=== PATIENT | male | born 1985 | race Caucasian/White ===

== ENCOUNTER 2020-01-09 12:24 | Emergency (ER) | payer OTHER ==
[2020-01-09] MEDS: Acetaminophen/HYDROcodone 325-5 MG Tab PO ONE (14:38)
[2020-01-09] MEDS: Ketorolac 30 MG/ML SDV IM ONE (15:01)
[2020-01-09 15:06] LABS: ANION GAP 17.2 mEq/L (7-13); CHLORIDE,CL 97 mmol/L (98-107); SODIUM,NA 133 mmol/L (136-145)
[2020-01-09] MEDS: predniSONE 20 MG Tab PO ONE (15:37)
--- NOTE | 2020-01-09 15:51 | EDM.PDOC ---
Scribed by Alejandra Hartman 01/09/20 1506 for Sanchez Pino PA ED HPI GENERAL MEDICAL PROBLEM - General Chief Complaint: Lower Extremity Injury/Pain Stated Complaint: GOUT FLARE UP IN BOTH LEGS Time Seen by Provider: 01/09/20 14:13 Source of Information: Reports: Patient, RN, RN Notes Reviewed History Limitations: Reports: No Limitations - History of Present Illness INITIAL COMMENTS - FREE TEXT/NARRATIVE: This 34 yo male patient reports to the ED with bilateral foot pain. The patient reports he was recently diagnosed with gout. The patient has taken Colcrys, Indomethacin and 2 series of steroids with some intermittent symptom relief. The patient reports he also has a tendon in his right great toe that pulled away from the bone causing further increased pain and swelling. The patient reports he was doing pretty well until he was ran out of steroids. The patient has been in a short walking boot due to the tendon injury, but has continued to have increased symptoms. Onset: Gradual Duration: Week(s):, Constant Location: Reports: Lower Extremity, Left, Lower Extremity, Right Quality: Reports: Ache, Other Severity: Moderate Improves with: Reports: None Worsens with: Reports: None Context: Reports: Other Associated Symptoms: Reports: No Other Symptoms - Related Data Allergies Allergy/AdvReac Type Severity Reaction Status Date / Time codeine AdvReac "sensitive Verified 01/09/20 12:42 to it" hydrocodone AdvReac severe Verified 01/09/20 13:57 abd. pain and hallucinations Home Meds: Home Meds Diclofenac Sodium 1 appful PO Q6H PRN 01/09/20 [History] Febuxostat 40 mg PO DAILY 01/09/20 [History] Irbesartan 150 mg PO DAILY 01/09/20 [History] Past Medical History HEENT History: Reports: None Cardiovascular History: Reports: Hypertension Respiratory History: Reports: None Gastrointestinal History: Reports: None Genitourinary History: Reports: Other (See Below) Other Genitourinary History: Consult with Nephrology for evaluation for underlying cause of Gout Musculoskeletal History: Reports: Fracture, Gout Other Musculoskeletal History: Right foot fx Neurological History: Reports: None Psychiatric History: Reports: None Endocrine/Metabolic History: Reports: None Hematologic History: Reports: None Immunologic History: Reports: None Oncologic (Cancer) History: Reports: None Dermatologic History: Reports: None Social & Family History - Tobacco Use Smoking Status *Q: Never Smoker Second Hand Smoke Exposure: No - Caffeine Use Caffeine Use: Reports: Soda - Recreational Drug Use Recreational Drug Use: No Review of Systems - Review of Systems Review Of Systems: Comprehensive ROS is negative, except as noted in HPI. ED EXAM, GENERAL - Physical Exam Exam: See Below Exam Limited By: No Limitations General Appearance: Alert, WD/WN, Moderate Distress Eye Exam: Bilateral Eye: EOMI, Normal Inspection, PERRL Ears: Normal External Exam, Normal Canal, Hearing Grossly Normal, Normal TMs Nose: Normal Inspection, Normal Mucosa, No Blood Throat/Mouth: Normal Inspection, Normal Lips, Normal Teeth, Normal Gums, Normal Oropharynx, Normal Voice, No Airway Compromise Head: Atraumatic, Normocephalic Neck: Normal Inspection, Supple, Non-Tender, Full Range of Motion Respiratory/Chest: No Respiratory Distress, Lungs Clear, Normal Breath Sounds, No Accessory Muscle Use, Chest Non-Tender Cardiovascular: Normal Peripheral Pulses, Regular Rate, Rhythm, No Edema, No Gallop, No JVD, No Murmur, No Rub GI/Abdominal: Normal Bowel Sounds, Soft, Non-Tender, No Organomegaly, No Distention, No Abnormal Bruit, No Mass (Male) Exam: Deferred Rectal (Males) Exam: Deferred Extremities: Leg Pain (bilateral foot pain with swelling. ) Neurological: Alert, Oriented, CN II-XII Intact, Normal Cognition, Normal Gait, Normal Reflexes, No Motor/Sensory Deficits Psychiatric: Normal Affect, Normal Mood Skin Exam: Warm, Dry, Intact, Normal Color, No Rash Lymphatic: No Adenopathy Course - Vital Signs Last Recorded V/S: Last Vital Signs Temp 37.1 C 01/09/20 12:31 Pulse 133 H 01/09/20 12:31 Resp 20 01/09/20 12:31 BP 145/70 H 01/09/20 12:31 Pulse Ox 100 01/09/20 12:31 - Orders/Labs/Meds Orders: Active Orders 24 hr Category Date Time Status DME for Discharge [COMM] Urgent Oth 01/09/20 15:30 Ordered Labs: Laboratory Tests 01/09/20 01/09/20 01/09/20 Range/Units 14:35 14:35 14:35 WBC 10.6 H (5.0-10.0) 10^3/uL RBC 4.14 L (4.6-6.2) 10^6/uL Hgb 13.4 L (14.0-18.0) g/dL Hct 40.9 (40.0-54.0) % MCV 98.8 (80-100) fL MCH 32.4 (27.0-34.0) pg MCHC 32.8 L (33.0-35.0) g/dL Plt Count 223 (150-450) 10^3/uL Neut % (Auto) 80.8 H (42.2-75.2) % Lymph % (Auto) 8.5 L (20.5-50.1) % [place] % (Auto) 10.5 H (2-8) % Eos % (Auto) 0.0 L (1.0-3.0) % Baso % (Auto) 0.2 (0.0-1.0) % Sodium 133 L (136-145) mmol/L Potassium 4.2 (3.5-5.1) mmol/L Chloride 97 L (98-107) mmol/L Carbon Dioxide 23 (21-32) mmol/L Anion Gap 17.2 H (7-13) mEq/L BUN 10 (7-18) mg/dL Creatinine 1.16 (0.70-1.30) mg/dL Est Cr Clr Drug Dosing 110.16 mL/min Estimated GFR (MDRD) > 60 BUN/Creatinine Ratio 8.6 (No establ ref range) Glucose 111 H (74-99) mg/dL Uric Acid 3.7 (3.5-7.2) mg/dL Calcium 9.1 (8.5-10.1) mg/dL Total Bilirubin 0.9 (0.2-1.0) mg/dL AST 27 (15-37) U/L ALT 30 (16-63) U/L Alkaline Phosphatase 77 (46-116) U/L Total Protein 8.2 (6.4-8.2) g/dL Albumin 3.2 L (3.4-5.0) g/dL Globulin 5.0 Albumin/Globulin Ratio 0.64 Meds: Medications Discontinued Medications Generic Name Dose Route Start Last Admin Trade Name Freq PRN Reason Stop Dose Admin Hydrocodone Bitart/Acetaminophen 1 tab 01/09/20 14:16 01/09/20 14:38 [place] 325-5 Mg PO 01/09/20 14:17 Not Given ONETIME ONE Ketorolac Tromethamine 60 mg 01/09/20 14:55 01/09/20 15:01 Toradol IM 01/09/20 14:56 60 mg ONETIME ONE Administration Prednisone 40 mg 01/09/20 15:23 01/09/20 15:37 Prednisone PO 01/09/20 15:24 40 mg ONETIME ONE Administration Departure - Departure Time of Disposition: 15:47 Disposition: Home, Self-Care 01 Condition: Fair Clinical Impression: Gout Qualifiers: Gout site: foot Gout etiology: unspecified cause Chronicity: chronic Laterality : unspecified laterality Qualified Code(s): M1A.0790 - Idiopathic chronic gout, unspecified ankle and foot, without tophus (tophi) - Discharge Information *PRESCRIPTION DRUG MONITORING PROGRAM REVIEWED*: Not Applicable *COPY OF PRESCRIPTION DRUG MONITORING REPORT IN PATIENT ANA MARIA: Not Applicable Instructions: Gout, [id number] Forms: ED Department Discharge Care Plan Goals: The patient was advised of the examination and lab results during the visit. The patient was given an injection of Toradol and an oral dose of Prednisone while in the ED. The patient was discharged with a script for Prednisone (20 mg ) #8 to take 2 by mouth daily for 4 days. If the patient has any additional symptoms or concerns, the patient should either return to the emergency department or visit his primary care facility. Sepsis Event Note - Evaluation Sepsis Screening Result: No Definite Risk - Focused Exam Vital Signs: Vital Signs Temp Pulse Resp BP Pulse Ox 01/09/20 12:31 37.1 C 133 H 20 145/70 H 100 Date Exam was Performed: 01/09/20 Time Exam was Performed: 15:47 - My Orders Last 24 Hours: My Active Orders 01/09/20 15:30 DME for Discharge [COMM] Urgent - Assessment/Plan Last 24 Hours: My Active Orders 01/09/20 15:30 DME for Discharge [COMM] Urgent I have read and agree with the documentation that has been completed regarding this visit. By signing this record, I attest that the documentation was completed in my physical presence and is an accurate record of the encounter.
== END 2020-01-09 15:54 | disposition home or self-care (01) ==
LOC: DL.ED 12:24
DX: M1A.0790 Idiopathic chronic gout, unspecified ankle and foot, without tophus (tophi) (principal); Z79.899 Other long term (current) drug therapy; Z88.5 Allergy status to narcotic agent; Z88.6 Allergy status to analgesic agent
CPT/HCPCS: 36415; 80053; 84550; 85025; 96372; 99283; A9270; J1885

== ENCOUNTER 2020-07-02 16:17 | Inpatient (IN) | payer OTHER ==
[2020-07-02] MEDS ORDERED: Ondansetron 4 MG Tab.DIS PO PRN (16:53)
[2020-07-02] MEDS ORDERED: Morphine 2 MG/ML SYRINGE IVPUSH PRN (16:53)
[2020-07-02] MEDS ORDERED: Sodium Chloride 0.9% 10 ML Syringe FLUSH PRN (16:53)
[2020-07-02] MEDS: Sodium Chloride 0.9% 1,000 ML IV SCH ×2 (17:30→23:29)
--- NOTE | 2020-07-02 17:31 | PCM.HP ---
H&P History of Present Illness - General Date of Service: 07/02/20 Admit Problem/Dx: Admission Diagnosis/Problem Admission Diagnosis/Problem Acute kidney injury Source of Information: Patient - History of Present Illness Initial Comments - Free Text/Narative: 34-year-old gentleman with a history of hypertension, depression, gout.. The patient developed right great toe draining wound. Has been followed by podiatry and required surgery middle of the summer. Subsequently had sepsis with cellulitis in the area. He was treated with multiple medications including vancomycin but due to side effects most recently he was on daptomycin. Even with daptomycin the patient had nausea, loose bowel movements. Recently tested negative for C. difficile. The patient developed severe muscle ache, cramps. He was found to have severely elevated CPK levels. Plan was hospital admission to treat rhabdomyolysis and try to prevent acute renal failure. - Related Data Allergies/Adverse Reactions: Allergies Allergy/AdvReac Type Severity Reaction Status Date / Time morphine AdvReac Severe Headache Verified 07/02/20 17:24 fentanyl AdvReac Intermediate Nausea Verified 07/02/20 17:24 codeine AdvReac "sensitive Verified 07/02/20 17:24 to it" hydrocodone AdvReac severe Verified 07/02/20 17:24 abd. pain and hallucinations Home Medications: Home Meds Febuxostat 40 mg PO DAILY 01/09/20 [History] Irbesartan 150 mg PO DAILY 01/09/20 [History] DULoxetine HCl [Duloxetine HCl] 60 mg PO DAILY 06/16/20 [History] ondansetron HCL [Ondansetron HCl] 4 mg PO Q8H PRN 06/16/20 [History] rifAMPin [Rifampin] 300 mg PO BID 06/16/20 [History] Metoprolol Succinate 50 mg PO DAILY 06/18/20 [History] Omeprazole 20 mg PO DAILY 06/18/20 [History] oxyCODONE HCl/Acetaminophen [Oxycodone-Acetaminophen 5-325] 1 tab PO Q8HR PRN 06/18/20 [History] traMADol HCl [Tramadol HCl] 50 mg PO Q8H PRN 06/18/20 [History] Past Medical History HEENT History: Reports: None Cardiovascular History: Reports: Hypertension Respiratory History: Reports: None Gastrointestinal History: Reports: None Genitourinary History: Reports: Other (See Below) Other Genitourinary History: Consult with Nephrology for evaluation for underlying cause of Gout Musculoskeletal History: Reports: Fracture, Gout Other Musculoskeletal History: Right foot fx Neurological History: Reports: None Psychiatric History: Reports: None Endocrine/Metabolic History: Reports: None Hematologic History: Reports: None Immunologic History: Reports: None Oncologic (Cancer) History: Reports: None Dermatologic History: Reports: None Social & Family History - Caffeine Use Caffeine Use: Reports: Soda H&P Review of Systems - Review of Systems: Review Of Systems: See Below General: Reports: Malaise, Weakness. Denies: Fever, Chills Pulmonary: Denies: Shortness of Breath Cardiovascular: Denies: Chest Pain Gastrointestinal: Reports: Diarrhea (Soft, loose but not watery), Nausea Genitourinary: Reports: Other (Has had good urine output but noticed foamy urine.). Denies: Dysuria Psychiatric: Denies: Confusion Exam - Exam Exam: See Below - Exam Quality Assessment: No: Supplemental Oxygen General: Alert, Oriented Neck: Supple Lungs: Clear to Auscultation, Normal Respiratory Effort Cardiovascular: Regular Rate, Regular Rhythm GI/Abdominal Exam: Soft, Non-Tender, Other (Obese) Extremities: No Pedal Edema Skin: Warm, Other (Right foot toe without significant erythema and no significant open wound. Left foot plantar surface of great toe small area of chronic-appearing ulcer.) - Problem List (1) Rhabdomyolysis SNOMED Code(s): 008943901 ICD Code: M62.82 - RHABDOMYOLYSIS Status: Acute Current Visit: Yes (2) Hypertension SNOMED Code(s): 21234432 ICD Code: I10 - ESSENTIAL (PRIMARY) HYPERTENSION Status: Acute Current Visit: Yes (3) Depression with anxiety SNOMED Code(s): 304842024 ICD Code: F41.8 - OTHER SPECIFIED ANXIETY DISORDERS Status: Acute Current Visit: Yes (4) Gout SNOMED Code(s): 55026998 ICD Code: M10.9 - GOUT, UNSPECIFIED Status: Acute Current Visit: No Problem List Initiated/Reviewed/Updated: Yes Orders Last 24hrs: Active Orders 24 hr Category Date Time Status Patient Status [ADT] Routine ADT 07/02/20 16:50 Active Antiembolic Devices [RC] PER UNIT ROUTINE Care 07/02/20 16:55 Active Oxygen Therapy [RC] PRN Care 07/02/20 16:53 Active Peripheral IV Care [RC] . DIRECTED Care 07/02/20 16:55 Active Up ad Ping [RC] ASDIRECTED Care 07/02/20 16:53 Active VTE/DVT Education [RC] PER UNIT ROUTINE Care 07/02/20 16:53 Active Vital Signs [RC] Q4H Care 07/02/20 16:53 Active Regular Diet [DIET] Diet 07/02/20 Dinner Active BASIC METABOLIC PANEL,BMP [CHEM] AM Lab 07/03/20 05:11 Ordered CBC WITH AUTO DIFF [HEME] AM Lab 07/03/20 05:11 Ordered CREATINE KINASE,CK [CHEM] AM Lab 07/03/20 05:11 Ordered Acetaminophen [TylenoL] Med 07/02/20 16:53 Active 650 mg PO Q4H PRN DULoxetine HCl [Duloxetine HCl] Med 07/03/20 09:00 Pending 60 mg PO DAILY Febuxostat [Febuxostat] Med 07/03/20 09:00 Pending 40 mg PO DAILY Heparin Sodium Med 07/02/20 22:00 Active 5,000 units SUBCUT Q8HR Metoprolol Succinate [Toprol XL] Med 07/03/20 09:00 Pending 100 mg PO DAILY Omeprazole Med 07/03/20 09:00 Pending 20 mg PO DAILY Ondansetron [Zofran ODT] Med 07/02/20 16:53 Active 4 mg PO Q6H PRN Sodium Chloride 0.9% [Normal Saline] 1,000 ml Med 07/02/20 17:30 Ordered IV ASDIRECTED Sodium Chloride 0.9% [Saline Flush] Med 07/02/20 16:53 Active 10 ml FLUSH ASDIRECTED PRN Zolpidem [Ambien] Med 07/02/20 16:53 Active 5 mg PO BEDTIME PRN cloNIDine [Catapres] Med 07/02/20 17:22 Ordered 0.1 mg PO Q4H PRN oxyCODONE Med 07/02/20 16:53 Active 5 mg PO Q4H PRN Antiembolic Hose [OM.PC] Per Unit Routine Oth 07/02/20 16:54 Ordered Peripheral IV Insertion Adult [OM.PC] Routine Oth 07/02/20 16:53 Ordered Resuscitation Status Routine Resus Stat 07/02/20 16:53 Ordered Medication Orders Acetaminophen (Tylenol) 650 mg PO Q4H PRN PRN Reason: Pain (Mild 1-3)/fever Clonidine HCl (Catapres) 0.1 mg PO Q4H PRN PRN Reason: sbp>150, DBP>100 Heparin Sodium (Porcine) (Heparin Sodium) 5,000 units SUBCUT Q8HR [place] Sodium Chloride (Normal Saline) 1,000 mls @ 150 mls/hr IV ASDIRECTED [place]ON Metoprolol Succinate (Toprol Xl) 100 mg PO DAILY [facility]ON Non-Formulary Medication (Duloxetine Hcl [Duloxetine Hcl]) 60 mg PO DAILY [facility] Non-Formulary Medication (Febuxostat [Febuxostat]) 40 mg PO DAILY LEON Omeprazole (Omeprazole) 20 mg PO DAILY [facility] Ondansetron HCl (Zofran Odt) 4 mg PO Q6H PRN PRN Reason: nausea, able to take PO Oxycodone HCl (Oxycodone) 5 mg PO Q4H PRN PRN Reason: Pain (moderate 4-6) Sodium Chloride (Saline Flush) 10 ml FLUSH ASDIRECTED PRN PRN Reason: Keep Vein Open Zolpidem Tartrate (Ambien) 5 mg PO BEDTIME PRN PRN Reason: Sleep Assessment/Plan Comment:: 34-year-old with a history of right foot cellulitis, osteomyelitis most recently on antibiotic treatment with daptomycin. Noticed muscle cramps, muscle weakness, foamy urine. Acute rhabdomyolysis with elevated CPK, AST Likely secondary to daptomycin We'll stop daptomycin Give normal saline bolus Hydrate well Give sodium bicarbonate Follow electrolytes and renal function Right great toe cellulitis, osteomyelitis Appears good now We'll hold off on further antibiotics Hypertension We'll hold ARB to prevent acute renal failure Follow blood pressure Clonidine when necessary Gout Continue ULoric Depression, anxiety Continue Cymbalta DVT prophylaxis with subcutaneous heparin
[2020-07-02] MEDS: oxyCODONE 5 MG Tab PO PRN (21:53)
[2020-07-02] MEDS: Acetaminophen 325 MG Tab PO PRN (21:55)
[2020-07-02] MEDS: Heparin Sodium 5,000 Units/ML Vial SUBCUT SCH (21:56)
[2020-07-02] MEDS ORDERED: Calcium Carbonate 500 MG Tab.Chew PO PRN (22:33)
[2020-07-02] MEDS: Zolpidem 5 MG Tab PO PRN (23:43)
[2020-07-02] MEDS: cloNIDine 0.1 MG Tab PO PRN (23:43)
[2020-07-03] MEDS: oxyCODONE 5 MG Tab PO PRN ×2 (02:01→06:04)
[2020-07-03] MEDS: Acetaminophen 325 MG Tab PO PRN ×2 (02:01→06:04)
[2020-07-03] MEDS: Heparin Sodium 5,000 Units/ML Vial SUBCUT SCH ×3 (05:24→21:37)
[2020-07-03] MEDS ORDERED: Omeprazole 20 MG Cap.CR PO SCH (06:00)
[2020-07-03] MEDS: Sodium Chloride 0.9% 1,000 ML IV SCH ×3 (06:07→21:30)
[2020-07-03 07:13] LABS: ANION GAP 14.7 mEq/L (7-13); CHLORIDE,CL 104 mmol/L (98-107); SODIUM,NA 140 mmol/L (136-145)
[2020-07-03] MEDS: amLODIPine 5 MG Tab PO SCH (08:46)
[2020-07-03] MEDS: Metoprolol Succinate 50 MG Tab.ER PO SCH (08:46)
[2020-07-03] MEDS: DULoxetine 30 MG Cap PO SCH (08:46)
[2020-07-03] MEDS: FEBUXOSTAT 40 MG PO SCH (08:48)
[2020-07-03] MEDS: Sodium Bicarbonate 650 MG Tab PO SCH ×2 (10:52→20:46)
[2020-07-03] MEDS: Omeprazole 20 MG Cap.CR PO SCH (10:52)
--- NOTE | 2020-07-03 13:09 | PCM.PN ---
- General Info Date of Service: 07/03/20 Admission Dx/Problem (Free Text): Admission Diagnosis/Problem Admission Diagnosis/Problem Acute kidney injury Subjective Update: Continues to have muscle ache, all over, has been present for days. It appears better with oxycodone. No associated seizure. Does have hand weakness. Urinating well, light color urine, somewhat foamy. Good amounts. No associated swelling or shortness of breath. Lower extremity wounds are without redness. - Review of Systems General: Reports: Weakness. Denies: Fever Pulmonary: Denies: Shortness of Breath Cardiovascular: Denies: Chest Pain, Edema Gastrointestinal: Denies: Abdominal Pain Genitourinary: Denies: Dysuria, Hematuria Neurological: Denies: Confusion - Patient Data Vitals - Most Recent: Last Vital Signs Temp 98.8 F 07/03/20 08:02 Pulse 96 07/03/20 08:46 Resp 18 07/03/20 08:02 BP 146/80 H 07/03/20 08:46 Pulse Ox 100 07/03/20 08:02 Weight - Most Recent: 284 lb I&O - Last 24 Hours: Intake & Output 07/02/20 07/03/20 07/03/20 22:59 06:59 14:59 Intake Total 1360 2000 360 Output Total 1300 Balance 1360 700 360 Lab Results Last 24 Hours: Laboratory Results - last 24 hr 07/03/20 07/03/20 Range/Units 05:05 05:05 WBC 5.4 (5.0-10.0) 10^3/uL RBC 3.29 L (4.6-6.2) 10^6/uL Hgb 11.2 L D (14.0-18.0) g/dL Hct 34.4 L (40.0-54.0) % MCV 104.6 H D (80-100) fL MCH 34.0 (27.0-34.0) pg MCHC 32.6 L (33.0-35.0) g/dL Plt Count 186 (150-450) 10^3/uL Neut % (Auto) 55.3 (42.2-75.2) % Lymph % (Auto) 36.2 (20.5-50.1) % [place] % (Auto) 7.4 (2-8) % Eos % (Auto) 0.7 L (1.0-3.0) % Baso % (Auto) 0.4 (0.0-1.0) % Sodium 140 (136-145) mmol/L Potassium 3.7 (3.5-5.1) mmol/L Chloride 104 (98-107) mmol/L Carbon Dioxide 25 (21-32) mmol/L Anion Gap 14.7 H (7-13) mEq/L BUN 8 (7-18) mg/dL Creatinine 1.27 (0.70-1.30) mg/dL Est Cr Clr Drug Dosing 100.62 mL/min Estimated GFR (MDRD) > 60 Glucose 93 (74-99) mg/dL Calcium 7.6 L (8.5-10.1) mg/dL Creatine Kinase 45193 H (39-308) U/L Med Orders - Current: Current Medications Acetaminophen (Tylenol) 650 mg PO Q4H PRN PRN Reason: Pain (Mild 1-3)/fever Last Admin: 07/03/20 06:04 Dose: 650 mg Documented by: Amlodipine Besylate (Norvasc) 5 mg PO DAILY [facility] Last Admin: 07/03/20 08:46 Dose: 5 mg Documented by: Calcium Carbonate/Glycine (Tums) 1,000 mg PO Q4H PRN PRN Reason: Heartburn Clonidine HCl (Catapres) 0.1 mg PO Q4H PRN PRN Reason: sbp>150, DBP>100 Last Admin: 07/02/20 23:43 Dose: 0.1 mg Documented by: Duloxetine HCl (Cymbalta) 60 mg PO DAILY [facility] [place] Last Admin: 07/03/20 08:46 Dose: 60 mg Documented by: Heparin Sodium (Porcine) (Heparin Sodium) 5,000 units SUBCUT Q8HR [facility] Last Admin: 07/03/20 05:24 Dose: Not Given Documented by: Sodium Chloride (Normal Saline) 1,000 mls @ 150 mls/hr IV ASDIRECTED [facility] Last Admin: 07/03/20 06:07 Dose: 150 mls/hr Documented by: Metoprolol Succinate (Toprol Xl) 100 mg PO DAILY [facility] Last Admin: 07/03/20 08:46 Dose: 100 mg Documented by: Febuxostat 40 Mg * (*Own Med) 0 mg PO DAILY [facility] Last Admin: 07/03/20 08:48 Dose: 40 mg Documented by: Omeprazole (Omeprazole) 20 mg PO DAILY@0800 [facility] Last Admin: 07/03/20 10:52 Dose: 20 mg Documented by: Ondansetron HCl (Zofran Odt) 4 mg PO Q6H PRN PRN Reason: nausea, able to take PO Oxycodone HCl (Oxycodone) 5 mg PO Q4H PRN PRN Reason: Pain (moderate 4-6) Last Admin: 07/03/20 06:04 Dose: 5 mg Documented by: Sodium Bicarbonate (Sodium Bicarbonate) 650 mg PO BID [facility] Last Admin: 07/03/20 10:52 Dose: 650 mg Documented by: Sodium Chloride (Saline Flush) 10 ml FLUSH ASDIRECTED PRN PRN Reason: Keep Vein Open Zolpidem Tartrate (Ambien) 5 mg PO BEDTIME PRN PRN Reason: Sleep Last Admin: 07/02/20 23:43 Dose: 5 mg Documented by: Discontinued Medications Morphine Sulfate (Morphine) 2 mg IVPUSH Q2H PRN PRN Reason: Pain (severe 7-10) Omeprazole (Omeprazole) 20 mg PO ACBREAKFAST [facility] - Exam General: Alert, Oriented Neck: Supple Lungs: Clear to Auscultation, Normal Respiratory Effort Cardiovascular: Regular Rate, Regular Rhythm GI/Abdominal Exam: Normal Bowel Sounds, Soft, Non-Tender Extremities: No Pedal Edema Skin: Warm, Dry Wound/Incisions: Healing Well Neurological: No New Focal Deficit Psy/Mental Status: Alert, Normal Affect, Normal Mood Sepsis Event Note - Evaluation Sepsis Screening Result: No Definite Risk - Focused Exam Vital Signs: Vital Signs Temp Pulse Pulse Resp BP BP Pulse Ox 07/03/20 08:46 96 146/80 H 07/03/20 08:02 98.8 F 96 18 146/80 H 100 07/03/20 04:00 98.9 F 98 18 148/82 H 100 07/03/20 02:12 99.1 F 107 H 16 150/89 H 100 - Problem List & Annotations (1) Rhabdomyolysis SNOMED Code(s): 342555439 Code(s): M62.82 - RHABDOMYOLYSIS Status: Acute Current Visit: Yes (2) Hypertension SNOMED Code(s): 55497417 Code(s): I10 - ESSENTIAL (PRIMARY) HYPERTENSION Status: Acute Current Visit: Yes (3) Depression with anxiety SNOMED Code(s): 031481786 Code(s): F41.8 - OTHER SPECIFIED ANXIETY DISORDERS Status: Acute Current Visit: Yes (4) Gout SNOMED Code(s): 20152392 Code(s): M10.9 - GOUT, UNSPECIFIED Status: Acute Current Visit: No - Problem List Review Problem List Initiated/Reviewed/Updated: Yes - My Orders Last 24 Hours: My Active Orders 07/02/20 16:53 Up ad Ping [RC] ASDIRECTED VTE/DVT Education [RC] Acetaminophen [TylenoL] 650 mg PO Q4H PRN Ondansetron [Zofran ODT] 4 mg PO Q6H PRN Sodium Chloride 0.9% [Saline Flush] 10 ml FLUSH ASDIRECTED PRN Zolpidem [Ambien] 5 mg PO BEDTIME PRN oxyCODONE 5 mg PO Q4H PRN Peripheral IV Insertion Adult [OM.PC] Routine Resuscitation Status Routine 07/02/20 16:54 Antiembolic Hose [OM.PC] Per Unit Routine 07/02/20 16:55 Antiembolic Devices [RC] 07/02/20 Dinner Regular Diet [DIET] 07/02/20 17:22 cloNIDine [Catapres] 0.1 mg PO Q4H PRN 07/02/20 17:30 Sodium Chloride 0.9% [Normal Saline] 1,000 ml IV ASDIRECTED 07/02/20 17:31 Admission Status [Patient Status] [ADT] Routine 07/02/20 22:00 Heparin Sodium 5,000 units SUBCUT Q8HR 07/02/20 22:33 Calcium Carbonate [Tums] 1,000 mg PO Q4H PRN 07/03/20 08:00 Communication Order [RC] DAILY Omeprazole 20 mg PO DAILY@0800 07/03/20 09:00 DULoxetine [Cymbalta] 60 mg PO DAILY Febuxostat [Febuxostat] 0 mg PO DAILY Metoprolol Succinate [Toprol XL] 100 mg PO DAILY amLODIPine [Norvasc] 5 mg PO DAILY 07/03/20 10:00 Sodium Bicarbonate 650 mg PO BID 07/04/20 05:11 ASPARTATE AMNIOTRANSFERASE,AST [CHEM] AM CPK [CREATINE KINASE,CK] [CHEM] AM 07/04/20 05:15 BASIC METABOLIC PANEL,BMP [CHEM] AM - Plan Plan:: 34-year-old with a history of right foot cellulitis, osteomyelitis most recently on antibiotic treatment with daptomycin. Noticed muscle cramps, muscle weakness, foamy urine. Acute rhabdomyolysis with elevated CPK, AST Likely secondary to daptomycin last daptomycin 07/01 Hydrate well with NS Give sodium bicarbonate Follow electrolytes and renal function try baclofen for pain cont oxycodone prn Right great toe cellulitis, osteomyelitis Appears good now We'll hold off on further antibiotics Hypertension We'll hold ARB with concern for potential acute renal failure start Norvasc Follow blood pressure Clonidine when necessary Gout Continue ULoric Depression, anxiety Continue Cymbalta DVT prophylaxis with subcutaneous heparin
[2020-07-03] MEDS: Baclofen 10 MG Tab PO PRN (17:02)
[2020-07-03] MEDS: cloNIDine 0.1 MG Tab PO PRN (20:46)
[2020-07-04] MEDS: Zolpidem 5 MG Tab PO PRN ×2 (00:06→23:18)
[2020-07-04] MEDS: cloNIDine 0.1 MG Tab PO PRN ×2 (01:02→16:31)
[2020-07-04] MEDS: Baclofen 10 MG Tab PO PRN ×2 (01:09→23:18)
[2020-07-04] MEDS: Sodium Chloride 0.9% 1,000 ML IV SCH ×3 (04:20→17:52)
[2020-07-04 06:50] LABS: ANION GAP 12.7 mEq/L (7-13); CHLORIDE,CL 107 mmol/L (98-107); SODIUM,NA 142 mmol/L (136-145)
[2020-07-04] MEDS: DULoxetine 30 MG Cap PO SCH (08:47)
[2020-07-04] MEDS: Metoprolol Succinate 50 MG Tab.ER PO SCH (08:47)
[2020-07-04] MEDS: Omeprazole 20 MG Cap.CR PO SCH (08:48)
[2020-07-04] MEDS: Heparin Sodium 5,000 Units/ML Vial SUBCUT SCH ×3 (08:48→23:07)
[2020-07-04] MEDS: Sodium Bicarbonate 650 MG Tab PO SCH ×2 (08:48→23:07)
[2020-07-04] MEDS: amLODIPine 5 MG Tab PO SCH (08:48)
[2020-07-04] MEDS: FEBUXOSTAT 40 MG PO SCH (08:49)
[2020-07-04] MEDS ORDERED: amLODIPine 5 MG Tab PO ONE (10:51)
--- NOTE | 2020-07-04 10:54 | PCM.PN ---
- General Info Date of Service: 07/04/20 Admission Dx/Problem (Free Text): Admission Diagnosis/Problem Admission Diagnosis/Problem Rhabdomyolysis Subjective Update: Continues to have muscle ache, all over, but significantly improved, has been for days. It appears better with baclofen. No associated rash, fever. Has soft bowel movements Urinating well, light color urine, somewhat foamy. Good amounts. No associated swelling or shortness of breath. Lower extremity wounds are without redness, not draining. Functional Status: Reports: Pain Controlled, Tolerating Diet - Review of Systems General: Reports: Weakness. Denies: Fever Pulmonary: Denies: Shortness of Breath Cardiovascular: Denies: Chest Pain, Edema Gastrointestinal: Denies: Abdominal Pain Neurological: Denies: Confusion - Patient Data Vitals - Most Recent: Last Vital Signs Temp 98.2 F 07/04/20 08:05 Pulse 94 07/04/20 08:47 Resp 20 07/04/20 08:05 BP 148/86 H 07/04/20 08:48 Pulse Ox 100 07/04/20 08:05 Weight - Most Recent: 284 lb I&O - Last 24 Hours: Intake & Output 07/03/20 07/04/20 07/04/20 22:59 06:59 14:59 Intake Total 1495 1010 Output Total 450 2850 Balance 1045 -1840 Lab Results Last 24 Hours: Laboratory Results - last 24 hr 07/04/20 Range/Units 05:35 Sodium 142 (136-145) mmol/L Potassium 3.7 (3.5-5.1) mmol/L Chloride 107 (98-107) mmol/L Carbon Dioxide 26 (21-32) mmol/L Anion Gap 12.7 (7-13) mEq/L BUN 7 (7-18) mg/dL Creatinine 1.12 (0.70-1.30) mg/dL Est Cr Clr Drug Dosing 114.10 mL/min Estimated GFR (MDRD) > 60 Glucose 102 H (74-99) mg/dL Calcium 7.3 L (8.5-10.1) mg/dL AST 619 H (15-37) U/L Creatine Kinase 26078 H (39-308) U/L Med Orders - Current: Current Medications Acetaminophen (Tylenol) 650 mg PO Q4H PRN PRN Reason: Pain (Mild 1-3)/fever Last Admin: 07/03/20 06:04 Dose: 650 mg Documented by: Amlodipine Besylate (Norvasc) 5 mg PO DAILY [facility] Last Admin: 07/04/20 08:48 Dose: 5 mg Documented by: Baclofen (Lioresal) 10 mg PO Q8H PRN PRN Reason: Spasms Last Admin: 07/04/20 01:09 Dose: 10 mg Documented by: Calcium Carbonate/Glycine (Tums) 1,000 mg PO Q4H PRN PRN Reason: Heartburn Clonidine HCl (Catapres) 0.1 mg PO Q4H PRN PRN Reason: sbp>150, DBP>100 Last Admin: 07/04/20 01:02 Dose: 0.1 mg Documented by: Duloxetine HCl (Cymbalta) 60 mg PO DAILY [facility] Last Admin: 07/04/20 08:47 Dose: 60 mg Documented by: Heparin Sodium (Porcine) (Heparin Sodium) 5,000 units SUBCUT Q8HR [facility] Last Admin: 07/04/20 08:48 Dose: Not Given Documented by: Sodium Chloride (Normal Saline) 1,000 mls @ 150 mls/hr IV ASDIRECTED [facility] Last Admin: 07/04/20 04:20 Dose: 150 mls/hr Documented by: Metoprolol Succinate (Toprol Xl) 100 mg PO DAILY [facility] Last Admin: 07/04/20 08:47 Dose: 100 mg Documented by: Febuxostat 40 Mg * (*Own Med) 0 mg PO DAILY [facility] Last Admin: 07/04/20 08:49 Dose: 40 mg Documented by: Omeprazole (Omeprazole) 20 mg PO DAILY@0800 [facility] Last Admin: 07/04/20 08:48 Dose: 20 mg Documented by: Ondansetron HCl (Zofran Odt) 4 mg PO Q6H PRN PRN Reason: nausea, able to take PO Oxycodone HCl (Oxycodone) 5 mg PO Q4H PRN PRN Reason: Pain (moderate 4-6) Last Admin: 07/03/20 06:04 Dose: 5 mg Documented by: Sodium Bicarbonate (Sodium Bicarbonate) 650 mg PO BID [facility] Last Admin: 07/04/20 08:48 Dose: 650 mg Documented by: Sodium Chloride (Saline Flush) 10 ml FLUSH ASDIRECTED PRN PRN Reason: Keep Vein Open Zolpidem Tartrate (Ambien) 5 mg PO BEDTIME PRN PRN Reason: Sleep Last Admin: 07/04/20 00:06 Dose: 5 mg Documented by: Discontinued Medications Morphine Sulfate (Morphine) 2 mg IVPUSH Q2H PRN PRN Reason: Pain (severe 7-10) Omeprazole (Omeprazole) 20 mg PO ACBREAKFAST LEON - Exam General: Alert, Oriented Neck: Supple Lungs: Clear to Auscultation Cardiovascular: Regular Rate, Regular Rhythm GI/Abdominal Exam: Normal Bowel Sounds, Soft, Non-Tender Extremities: No Pedal Edema Skin: Warm, Dry Wound/Incisions: Healing Well Psy/Mental Status: Alert, Normal Affect, Depressed Sepsis Event Note - Evaluation Sepsis Screening Result: No Definite Risk - Focused Exam Vital Signs: Vital Signs Temp Pulse Pulse Resp BP BP Pulse Ox 07/04/20 08:48 148/86 H 07/04/20 08:47 94 148/86 H 07/04/20 08:05 98.2 F 94 20 148/86 H 100 07/04/20 05:00 18 131/81 07/04/20 02:00 137/72 07/04/20 01:02 155/92 H 07/04/20 01:00 18 155/92 H 07/04/20 00:00 98 F 95 18 156/106 H - Problem List & Annotations (1) Rhabdomyolysis SNOMED Code(s): 157179130 Code(s): M62.82 - RHABDOMYOLYSIS Status: Acute Current Visit: Yes (2) Hypertension SNOMED Code(s): 85413215 Code(s): I10 - ESSENTIAL (PRIMARY) HYPERTENSION Status: Acute Current Visit: Yes (3) Depression with anxiety SNOMED Code(s): 900289494 Code(s): F41.8 - OTHER SPECIFIED ANXIETY DISORDERS Status: Acute Current Visit: Yes (4) Gout SNOMED Code(s): 84541411 Code(s): M10.9 - GOUT, UNSPECIFIED Status: Acute Current Visit: No - Problem List Review Problem List Initiated/Reviewed/Updated: Yes - My Orders Last 24 Hours: My Active Orders 07/03/20 10:00 Sodium Bicarbonate 650 mg PO BID 07/03/20 16:29 Baclofen [Lioresal] 10 mg PO Q8H PRN 07/04/20 10:51 amLODIPine [Norvasc] 5 mg PO ONETIME ONE 07/05/20 05:11 ASPARTATE AMNIOTRANSFERASE,AST [CHEM] AM CPK [CREATINE KINASE,CK] [CHEM] AM CRP [C-REACTIVE PROTEIN] [CHEM] AM MAGNESIUM [CHEM] AM PHOSPHORUS [CHEM] AM SEDIMENTATION RATE MANUAL [HEME] AM 07/05/20 05:15 BASIC METABOLIC PANEL,BMP [CHEM] AM CBC WITH AUTO DIFF [HEME] AM 07/05/20 09:00 amLODIPine [Norvasc] 10 mg PO DAILY - Plan Plan:: 34-year-old with a history of right foot cellulitis, osteomyelitis most recently on antibiotic treatment with daptomycin. Noticed muscle cramps, muscle weakness, foamy urine. Acute rhabdomyolysis with elevated CPK, AST Likely secondary to daptomycin last daptomycin 07/01 Appears improving Hydrate well with NS Continue oral sodium bicarbonate Follow electrolytes and renal function Continue baclofen for pain cont oxycodone prn Right great toe cellulitis, osteomyelitis Appears good now We'll hold off on further antibiotics Hypertension Uncontrolled We'll hold ARB with concern for potential acute renal failure Increase Norvasc Follow blood pressure Clonidine when necessary Gout Continue ULoric Depression, anxiety Continue Cymbalta DVT prophylaxis with subcutaneous heparin
[2020-07-05] MEDS: Sodium Chloride 0.9% 1,000 ML IV SCH ×2 (00:36→07:10)
[2020-07-05] MEDS: Heparin Sodium 5,000 Units/ML Vial SUBCUT SCH (06:21)
[2020-07-05 06:53] LABS: ANION GAP 15.5 mEq/L (7-13); CHLORIDE,CL 107 mmol/L (98-107); SODIUM,NA 143 mmol/L (136-145)
[2020-07-05] MEDS: DULoxetine 30 MG Cap PO SCH (08:19)
[2020-07-05] MEDS: Omeprazole 20 MG Cap.CR PO SCH (08:19)
[2020-07-05] MEDS: Sodium Bicarbonate 650 MG Tab PO SCH (08:19)
[2020-07-05] MEDS: Metoprolol Succinate 50 MG Tab.ER PO SCH (08:20)
[2020-07-05] MEDS: FEBUXOSTAT 40 MG PO SCH (08:21)
[2020-07-05] MEDS ORDERED: amLODIPine 5 MG Tab PO SCH (09:00)
--- NOTE | 2020-07-05 10:24 | PCM.DCSUM1 ---
Discharge Summary - Hospital Course Free Text/Narrative:: 34-year-old with a history of right foot cellulitis, osteomyelitis most recently on antibiotic treatment with daptomycin. Noticed muscle cramps, muscle weakness, foamy urine. Acute rhabdomyolysis with elevated CPK, AST Likely secondary to daptomycin last daptomycin 07/01 Appears improving Continue baclofen for pain cont oxycodone prn Right great toe cellulitis, osteomyelitis Appears good now We'll hold off on further antibiotics Hypertension Uncontrolled We'll hold ARB with concern for potential acute renal failure Increase Norvasc Follow blood pressure Clonidine when necessary Gout Continue ULoric Depression, anxiety Continue Cymbalta Patient wants to be discharged. Dr Weathers arranged for outpatient IV fluid boluses. Will have daily CPK level - Discharge Data Discharge Date: 07/05/20 Discharge Disposition: Home, Self-Care 01 Condition: Good - Referral to Home Health Primary Care Physician: Vale Palacio NP - Patient Instructions Activity: As Tolerated Driving: May Drive Today Showering/Bathing: May Shower Notify Provider of: Fever, Increased Pain, Swelling and Redness, Nausea and/or Vomiting - Discharge Plan *PRESCRIPTION DRUG MONITORING PROGRAM REVIEWED*: No Home Medications: Home Meds Febuxostat 40 mg PO DAILY 01/09/20 [History] Irbesartan 150 mg PO DAILY 01/09/20 [History] DULoxetine HCl [Duloxetine HCl] 60 mg PO DAILY 06/16/20 [History] Metoprolol Succinate 100 mg PO DAILY 06/18/20 [History] Omeprazole 20 mg PO DAILY 06/18/20 [History] oxyCODONE HCl/Acetaminophen [Oxycodone-Acetaminophen 5-325] 1 tab PO Q8HR PRN 06/18/20 [History] amLODIPine [Norvasc] 10 mg PO DAILY tablet 07/05/20 [Rx] Patient Handouts: Rhabdomyolysis, PICC Home Care Guide Referrals: Vale Palacio NP [Primary Care Provider] - - Discharge Summary/Plan Comment DC Time >30 min.: No - General Info Date of Service: 07/05/20 - Review of Systems General: Reports: Malaise HEENT: Reports: No Symptoms Pulmonary: Reports: No Symptoms Cardiovascular: Reports: No Symptoms Gastrointestinal: Reports: No Symptoms - Patient Data Vitals - Most Recent: Last Vital Signs Temp 37.0 C 07/05/20 08:00 Pulse 93 07/05/20 08:20 Resp 18 07/05/20 08:00 BP 157/102 H 07/05/20 08:20 Pulse Ox 100 07/05/20 08:00 Weight - Most Recent: 128.82 kg I&O - Last 24 hours: Intake & Output 07/04/20 07/05/20 07/05/20 22:59 06:59 14:59 Intake Total 1360 1897 Output Total 1200 1200 1000 Balance 160 697 -1000 Lab Results - Last 24 hrs: Laboratory Results - last 24 hr 07/05/20 07/05/20 07/05/20 Range/Units 05:55 05:55 05:55 WBC 6.0 (5.0-10.0) 10^3/uL RBC 3.27 L (4.6-6.2) 10^6/uL Hgb 11.2 L (14.0-18.0) g/dL Hct 33.9 L (40.0-54.0) % MCV 103.7 H (80-100) fL MCH 34.3 H (27.0-34.0) pg MCHC 33.0 (33.0-35.0) g/dL Plt Count 166 (150-450) 10^3/uL Neut % (Auto) 66.3 (42.2-75.2) % Lymph % (Auto) 25.2 (20.5-50.1) % [place] % (Auto) 6.5 (2-8) % Eos % (Auto) 1.7 (1.0-3.0) % Baso % (Auto) 0.3 (0.0-1.0) % ESR 20 H (0-15) mm/hr Sodium 143 (136-145) mmol/L Potassium 3.5 (3.5-5.1) mmol/L Chloride 107 (98-107) mmol/L Carbon Dioxide 24 (21-32) mmol/L Anion Gap 15.5 H (7-13) mEq/L BUN 6 L (7-18) mg/dL Creatinine 0.98 (0.70-1.30) mg/dL Est Cr Clr Drug Dosing 130.40 mL/min Estimated GFR (MDRD) > 60 Glucose 96 (74-99) mg/dL Calcium 7.1 L (8.5-10.1) mg/dL Phosphorus 3.1 (2.6-4.7) mg/dL Magnesium 1.5 L (1.8-2.4) mg/dL AST 342 H (15-37) U/L Creatine Kinase 49687 H (39-308) U/L C-Reactive Protein < 0.2 (0.0-0.9) mg/dL Med Orders - Current: Current Medications Acetaminophen (Tylenol) 650 mg PO Q4H PRN PRN Reason: Pain (Mild 1-3)/fever Last Admin: 07/03/20 06:04 Dose: 650 mg Documented by: Amlodipine Besylate (Norvasc) 10 mg PO DAILY [facility] Last Admin: 07/05/20 08:19 Dose: 10 mg Documented by: Baclofen (Lioresal) 10 mg PO Q8H PRN PRN Reason: Spasms Last Admin: 07/04/20 23:18 Dose: 10 mg Documented by: Calcium Carbonate/Glycine (Tums) 1,000 mg PO Q4H PRN PRN Reason: Heartburn Clonidine HCl (Catapres) 0.1 mg PO Q4H PRN PRN Reason: sbp>150, DBP>100 Last Admin: 07/04/20 16:31 Dose: 0.1 mg Documented by: Duloxetine HCl (Cymbalta) 60 mg PO DAILY [facility] Last Admin: 07/05/20 08:19 Dose: 60 mg Documented by: Heparin Sodium (Porcine) (Heparin Sodium) 5,000 units SUBCUT Q8HR [facility] Last Admin: 07/05/20 06:21 Dose: Not Given Documented by: Sodium Chloride (Normal Saline) 1,000 mls @ 150 mls/hr IV ASDIRECTED [facility] Last Admin: 07/05/20 07:10 Dose: 150 mls/hr Documented by: Metoprolol Succinate (Toprol Xl) 100 mg PO DAILY [facility] Last Admin: 07/05/20 08:20 Dose: 100 mg Documented by: Febuxostat 40 Mg * (*Own Med) 0 mg PO DAILY [facility] Last Admin: 07/05/20 08:21 Dose: 40 mg Documented by: Omeprazole (Omeprazole) 20 mg PO DAILY@0800 [facility] Last Admin: 07/05/20 08:19 Dose: 20 mg Documented by: Ondansetron HCl (Zofran Odt) 4 mg PO Q6H PRN PRN Reason: nausea, able to take PO Oxycodone HCl (Oxycodone) 5 mg PO Q4H PRN PRN Reason: Pain (moderate 4-6) Last Admin: 07/03/20 06:04 Dose: 5 mg Documented by: Sodium Bicarbonate (Sodium Bicarbonate) 650 mg PO BID [facility] Last Admin: 07/05/20 08:19 Dose: 650 mg Documented by: Sodium Chloride (Saline Flush) 10 ml FLUSH ASDIRECTED PRN PRN Reason: Keep Vein Open Zolpidem Tartrate (Ambien) 5 mg PO BEDTIME PRN PRN Reason: Sleep Last Admin: 07/04/20 23:18 Dose: 5 mg Documented by: Discontinued Medications Amlodipine Besylate (Norvasc) 5 mg PO DAILY [facility] Last Admin: 07/04/20 08:48 Dose: 5 mg Documented by: Amlodipine Besylate (Norvasc) 5 mg PO ONETIME ONE Stop: 07/04/20 10:52 Last Admin: 07/04/20 13:06 Dose: 5 mg Documented by: Morphine Sulfate (Morphine) 2 mg IVPUSH Q2H PRN PRN Reason: Pain (severe 7-10) Omeprazole (Omeprazole) 20 mg PO ACBREAKFAST LEON - Exam General: Reports: Alert, Oriented HEENT: Reports: Pupils Equal, Pupils Reactive, EOMI, Mucous Membr. Moist/[place] Lungs: Reports: Clear to Auscultation, Normal Respiratory Effort Cardiovascular: Reports: Regular Rate, Regular Rhythm GI/Abdominal Exam: Normal Bowel Sounds, Soft, Non-Tender, No Organomegaly, No Distention, No Abnormal Bruit, No Mass, Pelvis Stable
== END 2020-07-05 12:33 | disposition home or self-care (01) | DRG 558 ==
LOC: OBSVTOIN 16:59 → UNDOADMOB 16:59 → DL.MS 16:59 → INTOOBSV 16:59 → OBSVTOIN 17:31 → DL.MS 17:31
PROVIDERS: ADMIT Internal Medicine; ATTEND Hospitalist
DX: M62.82 Rhabdomyolysis (principal); M86.8X7 Other osteomyelitis, ankle and foot; T36.8X5A Adverse effect of other systemic antibiotics, initial encounter; L03.031 Cellulitis of right toe; I10 Essential (primary) hypertension; M10.9 Gout, unspecified; F41.9 Anxiety disorder, unspecified; F32.9 Major depressive disorder, single episode, unspecified; Z79.899 Other long term (current) drug therapy; Z88.5 Allergy status to narcotic agent; Z88.8 Allergy status to other drugs, medicaments and biological substances
CPT/HCPCS: 36415; 80048; 82550; 83735; 84100; 84450; 85025; 85651; 86140; A9270-GY; J7030

== ENCOUNTER 2021-12-30 00:16 | Emergency (ER) | payer OTHER ==
[2021-12-30] MEDS ORDERED: prednisoLONE Soln 15 MG/5 ML UD Cup PO ONE (00:17)
[2021-12-30] MEDS ORDERED: LORazepam 1 MG Tab PO ONE (00:17)
[2021-12-30] MEDS ORDERED: LORazepam 2 MG/ML SDV IVPUSH ONE (00:33)
[2021-12-30] MEDS ORDERED: methylPREDNISolone Sodium Succinate 125 MG/2 ML SDV IVPUSH ONE (00:41)
[2021-12-30] MEDS ORDERED: Iopamidol 612 MG/ML 100 ML Bottle IVPUSH ONE (00:42)
[2021-12-30] MEDS ORDERED: cefTRIAXone 1 GM in Sodium Chloride 0.9% 50 ML IV ONE (00:46)
[2021-12-30] MEDS ORDERED: Sodium Chloride 0.9% 1,000 ML IV ONE (00:46)
[2021-12-30 01:05] LABS: ANION GAP 20.2 mEq/L (7-13); CHLORIDE,CL 97 mmol/L (98-107); SODIUM,NA 137 mmol/L (136-145)
[2021-12-30 01:27] LABS: CORONAVIRUS COVID-19 NAA NEGATIVE (NEGATIVE)
[2021-12-30] MEDS ORDERED: Potassium Chloride 10 MEQ in Premix Bag 1 BAG IV ONE (01:38)
[2021-12-30] MEDS ORDERED: LORazepam 1 MG Tab ONE (02:16)
[2021-12-30] MEDS ORDERED: prednisoLONE Soln 15 MG/5 ML UD Cup ONE (02:16)
[2021-12-30] MEDS ORDERED: Amoxicillin/Clavulanate K 400-57 MG/5 ML Susp 100 ML Bottle ONE (02:17)
== END 2021-12-30 03:08 | disposition home or self-care (01) ==
LOC: DL.ED 00:16
DX: J02.9 Acute pharyngitis, unspecified (principal); Z88.5 Allergy status to narcotic agent; Z88.8 Allergy status to other drugs, medicaments and biological substances; Z79.899 Other long term (current) drug therapy; Z87.891 Personal history of nicotine dependence; Z20.822 Contact with and (suspected) exposure to COVID-19
CPT/HCPCS: 0240U; 36415; 70491; 80053; 83605; 85025; 86308; 87081; 87430; 96365; 96367; 96375; 99284; A9270; J0696; J2060; J2930; J3480; J7030; Q9967

== ENCOUNTER 2024-10-23 19:16 | Emergency (ER) | payer OTHER ==
[2024-10-23 19:38] LABS: BASOPHILS PERCENT AUTO 0.5 % (0.0-1.0); EOSINOPHILS PERCENT AUTO 0.9 % (1.0-3.0); HEMATOCRIT 31.7 % (40.0-54.0); HEMOGLOBIN 9.5 g/dL (14.0-18.0); LYMPHOCYTES PERCENT AUTO 33.9 % (20.5-50.1); MEAN CORPUSCULAR HEMOGLOBIN 23.3 pg (27.0-34.0); MEAN CORPUSCULAR VOLUME 77.9 fL (80-100); MONOCYTES PERCENT AUTO 4.8 % (2-8); NEUTROPHILS PERCENT AUTO 59.9 % (42.2-75.2); PLATELET COUNT,PLT 296 10^3/uL (150-450); RED BLOOD CELL COUNT 4.07 10^6/uL (4.6-6.2); WHITE BLOOD CELL COUNT,WBC 6.5 10^3/uL (5.0-10.0)
[2024-10-23] MEDS: MVI, Adult with Vitamin K 10 ML, Folic Acid 1 MG, Thiamine 100 MG in Lactated Ringers 1... IV ONE (19:50)
[2024-10-23 19:59] LABS: A/G RATIO 0.8; ALANINE AMINOTRANSFERASE,ALT 32 U/L (16-63); ALBUMIN 3.5 g/dL (3.4-5.0); ALKALINE PHOSPHATASE 133 U/L (46-116); ANION GAP 14.9 mEq/L (7-13); ASPARTATE AMNIOTRANSFERASE,AST 24 U/L (15-37); BILIRUBIN TOTAL 0.2 mg/dL (0.2-1.0); BLOOD UREA NITROGEN,BUN 11 mg/dL (7-18); BUN/CREATININE RATIO 8.7 (No establ ref range); CALCIUM 8.2 mg/dL (8.5-10.1); CARBON DIOXIDE,CO2 28 mmol/L (21-32); CHLORIDE,CL 101 mmol/L (98-107); CREATININE 1.26 mg/dL (0.70-1.30); GLUCOSE RANDOM 159 mg/dL (70-99); POTASSIUM,K 3.9 mmol/L (3.5-5.1); PROTEIN TOTAL,TP 7.8 g/dL (6.4-8.2); SODIUM,NA 140 mmol/L (136-145)
[2024-10-23 20:01] LABS: PROTHROMBIN TIME 10.3 SEC (9.0-12.0)
[2024-10-23 20:03] LABS: ESTIMATED GFR 74 mL/min (>=60)
[2024-10-23 20:04] LABS: ETHANOL BLOOD MEDICAL 416 mg/dL (0)
[2024-10-23] MEDS: Pantoprazole 40 MG Vial IVPUSH ONE (20:47)
[2024-10-23] MEDS: Sodium Chloride 0.9% 1,000 ML IV ONE (20:47)
[2024-10-23 21:09] LABS: APPEARANCE,URINE CLEAR (CLEAR); BILIRUBIN,URINE NEGATIVE (NEGATIVE); COLOR,URINE YELLOW (YELLOW); GLUCOSE,URINE NEGATIVE (NEGATIVE); KETONES,URINE NEGATIVE (NEGATIVE); LEUKOCYTE ESTERASE,URINE NEGATIVE (NEGATIVE); NITRITE,URINE NEGATIVE (NEGATIVE); OCCULT BLOOD,URINE NEGATIVE (NEGATIVE); PH,URINE 6.5 (5.0-9.0); PROTEIN,URINE NEGATIVE (NEGATIVE); UROBILINOGEN,URINE 0.2 mg/dL (0.2-1.0)
[2024-10-23 21:15] LABS: AMPHETAMINES,URINE NEGATIVE (NEGATIVE); BARBITURATES,URINE NEGATIVE (NEGATIVE); BENZODIAZEPINE,URINE NEGATIVE (NEGATIVE); MDMA (ECSTASY), URINE NEGATIVE (NEGATIVE); METHADONE,URINE NEGATIVE (NEGATIVE); METHAMPHETAMINES,URINE NEGATIVE (NEGATIVE); OPIATES,URINE NEGATIVE (NEGATIVE); OXYCODONE,URINE NEGATIVE (NEGATIVE); PHENCYCLIDINE,URINE NEGATIVE (NEGATIVE); TCA,URINE NEGATIVE (NEGATIVE)
== END 2024-10-24 01:05 | disposition home or self-care (01) ==
LOC: DL.ED 19:16
DX: F10.129 Alcohol abuse with intoxication, unspecified (principal); F12.10 Cannabis abuse, uncomplicated; D63.8 Anemia in other chronic diseases classified elsewhere; I10 Essential (primary) hypertension; Z79.899 Other long term (current) drug therapy; Z88.5 Allergy status to narcotic agent; Z88.6 Allergy status to analgesic agent
CPT/HCPCS: 36415; 70450; 80053; 80305; 80307; 81003; 82140; 83735; 84484; 85025; 85610; 93005; 96361; 96365; 96375; 99284; J2470; J3411; J7030; J7120; J3490

== ENCOUNTER 2024-11-18 05:49 | Day surgery (SDC) | payer OTHER ==
[~2024-11-18 05:49] MED LIST: Sodium Chloride 0.9% 10 ML Syringe FLUSH SCH
[2024-11-18] MEDS: Dextrose 5%-0.45% NaCl 1,000 ML IV SCH (06:08)
[2024-11-18] MEDS ORDERED: fentaNYL 100 MCG/2 ML SDV IV ONE (06:15)
[2024-11-18] MEDS ORDERED: fentaNYL 100 MCG/2 ML SDV ONE (06:15)
[2024-11-18] MEDS ORDERED: Midazolam 1 MG/ML 2 ML SDV IV ONE (06:15)
[2024-11-18] MEDS ORDERED: Midazolam 1 MG/ML 2 ML SDV ONE (06:15)
[2024-11-18] MEDS: fentaNYL 100 MCG/2 ML SDV IV ONE ×2 (06:32→06:33)
[2024-11-18] MEDS: Midazolam 1 MG/ML 2 ML SDV IV ONE ×2 (06:34)
== END 2024-11-18 08:17 | disposition home or self-care (01) ==
LOC: DL.ENDO 05:49
PROVIDERS: ATTEND Internal Medicine Gastroenterology
DX: K29.50 Unspecified chronic gastritis without bleeding (principal); D64.9 Anemia, unspecified; F10.90 Alcohol use, unspecified, uncomplicated; K76.9 Liver disease, unspecified; E66.09 Other obesity due to excess calories; F41.1 Generalized anxiety disorder; I12.9 Hypertensive chronic kidney disease with stage 1 through stage 4 chronic kidney disease, or unspecified chronic kidney disease; N18.9 Chronic kidney disease, unspecified; Z88.8 Allergy status to other drugs, medicaments and biological substances; Z88.5 Allergy status to narcotic agent; Z68.41 Body mass index [BMI] 40.0-44.9, adult
CPT/HCPCS: J2250; J3010; J7799

== ENCOUNTER 2024-11-19 05:41 | Day surgery (SDC) | payer OTHER ==
[2024-11-19] MEDS ORDERED: Midazolam 1 MG/ML 2 ML SDV IV ONE (06:09)
[2024-11-19] MEDS ORDERED: Midazolam 1 MG/ML 2 ML SDV ONE (06:09)
[2024-11-19] MEDS ORDERED: fentaNYL 100 MCG/2 ML SDV ONE (06:09)
[2024-11-19] MEDS ORDERED: fentaNYL 100 MCG/2 ML SDV IV ONE (06:09)
[2024-11-19] MEDS: Dextrose 5%-0.45% NaCl 1,000 ML IV SCH (06:10)
[2024-11-19] MEDS: fentaNYL 100 MCG/2 ML SDV IV ONE ×5 (06:57→07:15)
[2024-11-19] MEDS: Midazolam 1 MG/ML 2 ML SDV IV ONE ×6 (06:58→07:10)
== END 2024-11-19 08:33 | disposition home or self-care (01) ==
LOC: DL.ENDO 05:41
PROVIDERS: ATTEND Internal Medicine Gastroenterology
DX: D12.8 Benign neoplasm of rectum (principal); D64.9 Anemia, unspecified; K76.9 Liver disease, unspecified; I10 Essential (primary) hypertension; E66.09 Other obesity due to excess calories; F41.1 Generalized anxiety disorder
CPT/HCPCS: 45380; J2250; J3010; J7799

== ENCOUNTER 2025-02-26 19:34 | Inpatient (IN) | payer OTHER ==
[2025-02-26] MEDS: Ondansetron 4 MG/2 ML SDV IVPUSH ONE (20:11)
[2025-02-26] MEDS: Sodium Chloride 0.9% 1,000 ML IV ONE ×2 (20:12→23:44)
[2025-02-26] MEDS: Iopamidol 612 MG/ML 100 ML Bottle IVPUSH ONE ×2 (20:19→21:52)
[2025-02-26] MEDS: LORazepam 2 MG/ML SDV IVPUSH ONE (20:45)
[2025-02-26 20:46] LABS: BASOPHILS PERCENT AUTO 0.2 % (0.0-1.0); HEMATOCRIT 32.3 % (40.0-54.0); LYMPHOCYTES PERCENT AUTO 5.9 % (20.5-50.1); MEAN CORPUSCULAR HEMOGLOBIN 24.6 pg (27.0-34.0); MEAN CORPUSCULAR VOLUME 79.4 fL (80-100); NEUTROPHILS PERCENT AUTO 85.9 % (42.2-75.2); PLATELET COUNT,PLT 171 10^3/uL (150-450); RED BLOOD CELL COUNT 4.07 10^6/uL (4.6-6.2); WHITE BLOOD CELL COUNT,WBC 5.3 10^3/uL (5.0-10.0)
[2025-02-26 21:07] LABS: A/G RATIO 0.7; ALANINE AMINOTRANSFERASE,ALT 31 U/L (16-63); ALBUMIN 3.6 g/dL (3.4-5.0); ALKALINE PHOSPHATASE 129 U/L (46-116); ASPARTATE AMNIOTRANSFERASE,AST 31 U/L (15-37); BILIRUBIN TOTAL 0.6 mg/dL (0.2-1.0); BLOOD UREA NITROGEN,BUN 8 mg/dL (7-18); BUN/CREATININE RATIO 5.9 (No establ ref range); CALCIUM 9.1 mg/dL (8.5-10.1); CARBON DIOXIDE,CO2 25 mmol/L (21-32); CHLORIDE,CL 95 mmol/L (98-107); CREATININE 1.36 mg/dL (0.70-1.30); GLUCOSE RANDOM 132 mg/dL (70-99); LIPASE 13 U/L (16-77); MAGNESIUM 1.3 mg/dL (1.8-2.4); PROTEIN TOTAL,TP 8.5 g/dL (6.4-8.2); SODIUM,NA 132 mmol/L (136-145)
[2025-02-26 21:11] LABS: ANION GAP 15.6 mEq/L (7-13); POTASSIUM,K 3.6 mmol/L (3.5-5.1)
[2025-02-26 21:13] LABS: ESTIMATED GFR 68 mL/min (>=60); ETHANOL BLOOD MEDICAL < 3 mg/dL (0)
[2025-02-26] MEDS: HYDROmorphone 0.5 MG/0.5 ML Syringe IVPUSH ONE (21:57)
[2025-02-26 22:22] LABS: APPEARANCE,URINE CLEAR (CLEAR); BILIRUBIN,URINE NEGATIVE (NEGATIVE); COLOR,URINE YELLOW (YELLOW); GLUCOSE,URINE NEGATIVE (NEGATIVE); KETONES,URINE NEGATIVE (NEGATIVE); LEUKOCYTE ESTERASE,URINE NEGATIVE (NEGATIVE); NITRITE,URINE NEGATIVE (NEGATIVE); OCCULT BLOOD,URINE NEGATIVE (NEGATIVE); PH,URINE 6.5 (5.0-9.0); PROTEIN,URINE NEGATIVE (NEGATIVE); UROBILINOGEN,URINE 0.2 mg/dL (0.2-1.0)
[2025-02-26] MEDS: Ketorolac 30 MG/ML SDV IVPUSH ONE (23:42)
[2025-02-27] MEDS: Acetaminophen 500 MG Tab PO ONE (00:01)
[2025-02-27] MEDS: Sodium Chloride 0.9% 1,000 ML IV ONE (00:30)
[2025-02-27] MEDS: Piperacillin/Tazobactam 4.5 GM in Sodium Chloride 0.9% 100 ML IV ONE (02:06)
[2025-02-27] MEDS ORDERED: Sodium Chloride 0.9% 10 ML Syringe FLUSH PRN (03:05)
[2025-02-27] MEDS ORDERED: Docusate Sodium 100 MG Cap PO PRN (03:05)
[2025-02-27] MEDS ORDERED: 50% Dextrose in Water 50 ML Syringe IVPUSH PRN (03:52)
[2025-02-27] MEDS ORDERED: Glucagon,Human Recombinant 1 MG Vial IM PRN (03:52)
[2025-02-27] MEDS: Magnesium Sulf/Wat 4 GM/50 mL 4 GM in Premix Bag 50 BAG IV ONE (04:17)
[2025-02-27] MEDS: Lactated Ringers 1,000 ML IV SCH (04:18)
[2025-02-27 05:38] LABS: EOSINOPHILS PERCENT AUTO 0.2 % (1.0-3.0); HEMATOCRIT 30.2 % (40.0-54.0); HEMOGLOBIN 9.4 g/dL (14.0-18.0); HEMOGLOBIN A1C 5.6 % (<5.7); LYMPHOCYTES PERCENT AUTO 6.4 % (20.5-50.1); MEAN CORPUSCULAR HEMOGLOBIN 24.6 pg (27.0-34.0); MEAN CORPUSCULAR HGB CONC 31.1 g/dL (33.0-35.0); MEAN CORPUSCULAR VOLUME 79.1 fL (80-100); MONOCYTES PERCENT AUTO 10.2 % (2-8); NEUTROPHILS PERCENT AUTO 83.2 % (42.2-75.2); PLATELET COUNT,PLT 91 10^3/uL (150-450); RED BLOOD CELL COUNT 3.82 10^6/uL (4.6-6.2); WHITE BLOOD CELL COUNT,WBC 5.2 10^3/uL (5.0-10.0)
[2025-02-27 05:43] LABS: ALBUMIN 3.1 g/dL (3.4-5.0); ANION GAP 14.8 mEq/L (7-13); BILIRUBIN DIRECT 0.6 mg/dL (0.0-0.2); BILIRUBIN INDIRECT 0.5; BILIRUBIN TOTAL 1.1 mg/dL (0.2-1.0); C-REACTIVE PROTEIN 11.26 ng/dL (<=0.50); CALCIUM 8.6 mg/dL (8.5-10.1); CREATININE 1.41 mg/dL (0.70-1.30); EST CRCL DRUG DOSING (CG) 84.07 mL/min; MAGNESIUM 1.1 mg/dL (1.8-2.4); POTASSIUM,K 3.8 mmol/L (3.5-5.1); PROTEIN TOTAL,TP 7.5 g/dL (6.4-8.2)
[2025-02-27] MEDS: VANCOmycin 1.5 GM/300 ML 1.5 GM in Premix Bag 1 BAG IV SCH (05:43)
[2025-02-27] MEDS: diphenhydrAMINE 50 MG/ML SDV IVPUSH ONE (05:43)
[2025-02-27] MEDS: Heparin Sodium 5,000 Units/ML Vial SUBCUT SCH (05:43)
[2025-02-27 05:49] LABS: A/G RATIO 0.7
[2025-02-27 05:53] LABS: T4 FREE 1.12 ng/dL (0.76-1.46); TOTAL IRON BINDING CAPACITY 270 ug/dL (250-450); TSH ULTRASENSITIVE 0.62 uIU/mL (0.36-3.74)
[2025-02-27 05:59] LABS: KETONES,BLOOD NEGATIVE
[2025-02-27 06:05] LABS: FOLIC ACID 19.9 ng/mL (8.6-58.9)
[2025-02-27] MEDS: Insulin Lispro Protamine/Lispro 75-25 100 Units/ML 10 ML Vial SUBCUT SCH (08:09)
[2025-02-27] MEDS: Cefepime 2 GM Vial IVPUSH SCH (09:25)
[2025-02-27] MEDS: Gabapentin 300 MG Cap PO SCH (09:25)
[2025-02-27] MEDS: Magnesium Oxide 400 MG Tab PO SCH (09:26)
[2025-02-27] MEDS: Sodium Chloride 0.9% 10 ML Syringe FLUSH SCH (09:26)
[2025-02-27] MEDS: Magnesium Sulfate 2 GM/50 mL 2 GM in Premix Bag 1 BAG IV SCH (09:48)
[2025-02-27 10:31] LABS: MAGNESIUM 2.1 mg/dL (1.8-2.4); VANCOMYCIN RANDOM 15.4 ug/mL (No Normal Range)
[2025-02-27] MEDS: Acetaminophen 325 MG Tab PO PRN (12:27)
[2025-02-27] MEDS: Doxepin 10 MG Cap PO PRN (20:57)
[2025-02-27] MEDS: Mirtazapine 15 MG Tab PO SCH (20:58)
[2025-02-27] MEDS: hydrOXYzine HCl 25 MG Tab PO PRN (20:58)
[2025-02-28] MEDS: LORazepam 2 MG/ML SDV IVPUSH ONE (00:22)
[2025-02-28 07:17] LABS: HEMATOCRIT 29.6 % (40.0-54.0); HEMOGLOBIN 8.7 g/dL (14.0-18.0); MEAN CORPUSCULAR HGB CONC 29.4 g/dL (33.0-35.0); MEAN CORPUSCULAR VOLUME 81.8 fL (80-100); PLATELET COUNT,PLT 146 10^3/uL (150-450); RED BLOOD CELL COUNT 3.62 10^6/uL (4.6-6.2)
[2025-02-28 07:33] LABS: ANION GAP 13.8 mEq/L (7-13); CREATININE 1.05 mg/dL (0.70-1.30); EST CRCL DRUG DOSING (CG) 112.89 mL/min; POTASSIUM,K 3.8 mmol/L (3.5-5.1)
[2025-02-28 07:39] LABS: BASOPHILS PERCENT AUTO 0.3 % (0.0-1.0); LYMPHOCYTES PERCENT AUTO 22.3 % (20.5-50.1); NEUTROPHILS PERCENT AUTO 59.4 % (42.2-75.2)
[2025-02-28 07:55] LABS: LYMPHOCYTES PERCENT MAN 19 % (20-50); MONOCYTES PERCENT MAN 15 % (2-8); SEG NEUTROPHILS PERCENT MAN 66 % (42-75)
== END 2025-02-28 10:15 | DRG 314 ==
LOC: DL.ED 19:34 → DL.MS 02-27 01:54
PROVIDERS: ADMIT Internal Medicine; ATTEND Internal Medicine
DX: T80.211A Bloodstream infection due to central venous catheter, initial encounter (principal); A41.9 Sepsis, unspecified organism; L76.22 Postprocedural hemorrhage of skin and subcutaneous tissue following other procedure; C18.9 Malignant neoplasm of colon, unspecified; E87.1 Hypo-osmolality and hyponatremia; N17.9 Acute kidney failure, unspecified; Z68.41 Body mass index [BMI] 40.0-44.9, adult; K21.9 Gastro-esophageal reflux disease without esophagitis; M10.9 Gout, unspecified; F41.9 Anxiety disorder, unspecified; F32.A Depression, unspecified; E86.0 Dehydration; E83.42 Hypomagnesemia; E11.65 Type 2 diabetes mellitus with hyperglycemia; N18.30 Chronic kidney disease, stage 3 unspecified; E11.22 Type 2 diabetes mellitus with diabetic chronic kidney disease; E11.621 Type 2 diabetes mellitus with foot ulcer; L97.529 Non-pressure chronic ulcer of other part of left foot with unspecified severity; I12.9 Hypertensive chronic kidney disease with stage 1 through stage 4 chronic kidney disease, or unspecified chronic kidney disease; D50.9 Iron deficiency anemia, unspecified; D63.1 Anemia in chronic kidney disease; R79.89 Other specified abnormal findings of blood chemistry; E66.9 Obesity, unspecified; F41.8 Other specified anxiety disorders; G89.29 Other chronic pain; E11.43 Type 2 diabetes mellitus with diabetic autonomic (poly)neuropathy; K31.84 Gastroparesis; E11.610 Type 2 diabetes mellitus with diabetic neuropathic arthropathy; F10.20 Alcohol dependence, uncomplicated; Z88.5 Allergy status to narcotic agent; Z88.8 Allergy status to other drugs, medicaments and biological substances; Z87.81 Personal history of (healed) traumatic fracture; Z90.89 Acquired absence of other organs; Z98.890 Other specified postprocedural states; Z86.718 Personal history of other venous thrombosis and embolism; Z88.1 Allergy status to other antibiotic agents; Z79.1 Long term (current) use of non-steroidal anti-inflammatories (NSAID); Z79.899 Other long term (current) drug therapy
CPT/HCPCS: 36415; 71260; 74177; 80048; 80053; 80076; 80202; 80307; 81003; 82009; 82272; 82378; 82550; 82607; 82746; 82947; 82977; 83036; 83550; 83605; 83690; 83735; 83930; 83935; 84100; 84145; 84155; 84165; 84439; 84443; 84484; 85025; 86140; 87040; 87070; 87075; 87077; 87186; 87428-QW; 93005; 96361; 96374; 96375; 99223; 99239; 99285; 99285-25; A9270-GY; J0692; J1200; J1644; J1815-GY; J1885; J2060; J2405; J2543; J3372; J3475; J7030; J7120; Q9967; U0002

== ENCOUNTER 2025-05-05 16:10 | Emergency (ER) | payer OTHER ==
[2025-05-05 16:47] LABS: BASOPHILS PERCENT AUTO 0.3 % (0.0-1.0); EOSINOPHILS PERCENT AUTO 2.0 % (1.0-3.0); LYMPHOCYTES PERCENT AUTO 21.4 % (20.5-50.1); MONOCYTES PERCENT AUTO 5.4 % (2-8); NEUTROPHILS PERCENT AUTO 70.9 % (42.2-75.2); PLATELET COUNT,PLT 276 10^3/uL (150-450); RED BLOOD CELL COUNT 4.60 10^6/uL (4.6-6.2); WHITE BLOOD CELL COUNT,WBC 6.5 10^3/uL (5.0-10.0)
[2025-05-05 17:03] LABS: INR 0.9 (0.9-1.2)
[2025-05-05 17:07] LABS: A/G RATIO 0.9; ALANINE AMINOTRANSFERASE,ALT 32.0 U/L (16-63); ASPARTATE AMNIOTRANSFERASE,AST 15.0 U/L (15-37); BILIRUBIN DIRECT 0.1 mg/dL (0.0-0.2); BILIRUBIN INDIRECT 0.2; BILIRUBIN TOTAL 0.3 mg/dL (0.2-1.0); BLOOD UREA NITROGEN,BUN 8.0 mg/dL (7-18); CARBON DIOXIDE,CO2 31.0 mmol/L (21-32); CHLORIDE,CL 101.0 mmol/L (98-107); CREATININE 1.31 mg/dL (0.70-1.30); EST CRCL DRUG DOSING (CG) 90.48 mL/min; ESTIMATED GFR 71.0 mL/min (>=60); GLUCOSE RANDOM 120.0 mg/dL (70-99); POTASSIUM,K 4.3 mmol/L (3.5-5.1); PROTEIN TOTAL,TP 8.1 g/dL (6.4-8.2); SODIUM,NA 138.0 mmol/L (136-145)
== END 2025-05-05 17:45 | disposition home or self-care (01) ==
LOC: DL.ED 16:10
DX: E86.0 Dehydration (principal); R11.2 Nausea with vomiting, unspecified; I12.9 Hypertensive chronic kidney disease with stage 1 through stage 4 chronic kidney disease, or unspecified chronic kidney disease; N18.9 Chronic kidney disease, unspecified; E11.22 Type 2 diabetes mellitus with diabetic chronic kidney disease; E11.42 Type 2 diabetes mellitus with diabetic polyneuropathy; Z79.899 Other long term (current) drug therapy; Z88.5 Allergy status to narcotic agent; Z88.8 Allergy status to other drugs, medicaments and biological substances; Z88.1 Allergy status to other antibiotic agents
CPT/HCPCS: 36415; 80048; 80076; 82150; 83690; 85025; 85610; 87040; 96360; 99284; J7030

== ENCOUNTER 2025-05-20 12:06 | Emergency (ER) | payer OTHER ==
[2025-05-20 12:59] LABS: BASOPHILS PERCENT AUTO 0.2 % (0.0-1.0); EOSINOPHILS PERCENT AUTO 0.5 % (1.0-3.0); LYMPHOCYTES PERCENT AUTO 23.8 % (20.5-50.1); MONOCYTES PERCENT AUTO 6.5 % (2-8); NEUTROPHILS PERCENT AUTO 69.0 % (42.2-75.2); PLATELET COUNT,PLT 267 10^3/uL (150-450); RED BLOOD CELL COUNT 4.97 10^6/uL (4.6-6.2); WHITE BLOOD CELL COUNT,WBC 8.2 10^3/uL (5.0-10.0)
[2025-05-20] MEDS: Lactated Ringers 1,000 ML IV SCH (13:02)
[2025-05-20] MEDS: Ondansetron 4 MG/2 ML SDV IVPUSH ONE (13:02)
[2025-05-20 13:18] LABS: A/G RATIO 1.0; ALANINE AMINOTRANSFERASE,ALT 62.0 U/L (16-63); ASPARTATE AMNIOTRANSFERASE,AST 24.0 U/L (15-37); BILIRUBIN TOTAL 0.5 mg/dL (0.2-1.0); BLOOD UREA NITROGEN,BUN 8.0 mg/dL (7-18); CARBON DIOXIDE,CO2 29.0 mmol/L (21-32); CHLORIDE,CL 101.0 mmol/L (98-107); CREATININE 1.43 mg/dL (0.70-1.30); EST CRCL DRUG DOSING (CG) 82.89 mL/min; GLUCOSE RANDOM 147.0 mg/dL (70-99); POTASSIUM,K 3.9 mmol/L (3.5-5.1); PROTEIN TOTAL,TP 8.8 g/dL (6.4-8.2); SODIUM,NA 141.0 mmol/L (136-145)
[2025-05-20 13:19] LABS: ESTIMATED GFR 64.0 mL/min (>=60)
[2025-05-20] MEDS: LORazepam 2 MG/ML SDV IVPUSH ONE (14:06)
[2025-05-20] MEDS ORDERED: Lactated Ringers 1,000 ML IV SCH (16:15)
== END 2025-05-20 17:03 | disposition home or self-care (01) ==
LOC: DL.ED 12:06
DX: R11.2 Nausea with vomiting, unspecified (principal); I12.9 Hypertensive chronic kidney disease with stage 1 through stage 4 chronic kidney disease, or unspecified chronic kidney disease; N18.9 Chronic kidney disease, unspecified; E11.21 Type 2 diabetes mellitus with diabetic nephropathy; E11.22 Type 2 diabetes mellitus with diabetic chronic kidney disease; K21.9 Gastro-esophageal reflux disease without esophagitis; Z88.5 Allergy status to narcotic agent; Z88.1 Allergy status to other antibiotic agents; Z88.8 Allergy status to other drugs, medicaments and biological substances; Z79.899 Other long term (current) drug therapy
CPT/HCPCS: 36415; 80053; 85025; 93005; 93010; 96361; 96374; 96375; 99283; 99284; A9270; J1630; J2060; J2405; J2765; J7120